=== PATIENT | male | born 1975 | race Caucasian/White ===

== ENCOUNTER 2016-04-29 18:03 | Emergency (ER) | payer OTHER ==
[~2016-04-29] VITALS: Ht 177.8 cm; Wt 115.9 kg
[~2016-04-29 18:03] MED LIST: ADDERALL20 MG PO; BACTRIM,SEPT1 TABLET PO; CLARITIN,ALAVAR10 MG PO; PERCOCET 5/31 TABLET PO; ZESTRIL,PRINIVI20 MG PO
[2016-04-29] MEDS ORDERED: KEFLEX500 MG PO (20:31)
[2016-04-29 22:01] VITALS: BP 155/90
== END 2016-04-29 22:02 | disposition home or self-care (01) ==
LOC: EME 18:03
PROC: 0HQMXZZ Repair Right Foot Skin, External Approach (ICD-10-PCS; principal; 2016-04-29)
PROC: 3E0234Z Introduction of Serum, Toxoid and Vaccine into Muscle, Percutaneous Approach (ICD-10-PCS; 2016-04-29)
DX: S91.114A Laceration without foreign body of right lesser toe(s) without damage to nail, initial encounter (principal); S93.601A Unspecified sprain of right foot, initial encounter; W45.8XXA Other foreign body or object entering through skin, initial encounter; W22.8XXA Striking against or struck by other objects, initial encounter; Z23 Encounter for immunization; F17.200 Nicotine dependence, unspecified, uncomplicated
CPT/HCPCS: 73630; 99281; 99283